=== PATIENT | male | born 1945 | race Caucasian/White ===

== ENCOUNTER 2019-10-27 10:00 | Outpatient (CLI) | payer MEDICARE, SELFPAY ==
--- NOTE | ~2019-10-27 | CT_ITS ---
EXAMINATION: CT lung screening DATE: 10/27/2019 10:18 INDICATION: Personal history of nicotine dependence, current smoker with 60 pack year history TECHNIQUE: Computed tomography (CT) of the chest was performed without intravenous contrast. The dose -length product (DLP) was 98.41 mGy-cm. Automated exposure control and iterative reconstruction techn ique were employed. COMPARISON: None FINDINGS: There is mild emphysema. A 2 mm nodule is present in the left upper lobe on image 24. The l ungs are free of acute opacities. There is no pleural effusion or pneumothorax. There is mild bilater al gynecomastia. No pathologically enlarged thoracic lymph nodes are identified. The heart size is no rmal. Calcified coronary artery atherosclerosis is noted. There is mild thoracic spondylosis. IMPRESSION: 1. Lung-RADS category 2: Benign appearance or behavior. Continue annual screening with noncontrast lo w-dose chest CT in 12 months. Reviewed, dictated and finalized at location A. IMPRESSION: 1. Lung-RADS category 2: Benign appearance or behavior. Continue annual screeni ng with noncontrast low-dose chest CT in 12 months.
== END 2019-10-27 10:01 | disposition home or self-care (01) ==
LOC: ANHIMG 10:03
PROVIDERS: PCP Physician Assistant; Visit Provider Physician Assistant
DX: Z12.2 Encounter for screening for malignant neoplasm of respiratory organs (principal); Z87.891 Personal history of nicotine dependence
CPT/HCPCS: G0297

== ENCOUNTER 2020-10-28 06:37 | Outpatient (CLI) | payer MEDICARE, SELFPAY ==
[2020-10-28 07:17] LABS: Hematocrit 42.3 % (42.0-52.0); Hemoglobin 14.2 g/dL (14.0-18.0); Mean Corpuscular HGB Conc 33.6 g/dl (32-36); Mean Corpuscular Hemoglobin 30.5 pg (26-34); Platelet Count Result 190 k/mm3 (150-375); Red Blood Count 4.65 M/mm3 (4.6-6.20); Red Cell Distribution Width 13.6 % (11.5-14.5); White Blood Count 5.7 K/mm3 (4.5-10.0)
[2020-10-28 07:28] LABS: Alanine Aminotransferase 21 U/L (4-50); Albumin Level 3.8 g/dL (3.5-5.1); Alkaline Phosphatase 88 U/L (38-126); Anion Gap 3 mmol/L (8-16); Aspartate Amino Transferase 35 U/L (17-59); Blood Urea Nitrogen 12 mg/dL (9-20); Calcium 9.4 mg/dL (8.4-10.2); Carbon Dioxide 29 mmol/L (22-30); Chloride 103 mmol/L (98-107); Cholesterol 116 mg/dL (0-200); Estimated Glomerular Filt Rate > 60; Glucose 97 mg/dL (65-110); HDL Direct 51 mg/dL; Potassium 4.5 mmol/L (3.4-5.0); Sodium 135 mmol/L (137-145); Triglycerides 37 mg/dL (<150)
[2020-10-28 07:40] LABS: LDL Cholesterol Direct 55 mg/dL
[2020-10-28 08:00] LABS: Prostate Specific Antigen 0.5 ng/mL (< OR = 4.0)
[2020-10-28 08:36] LABS: Folic Acid > 20.0 ng/mL (2.76->20)
== END 2020-10-28 06:38 | disposition home or self-care (01) ==
LOC: ANHLAB 06:39
PROVIDERS: PCP Internal Medicine; Visit Provider Physician Assistant
DX: R53.83 Other fatigue (principal); I25.10 Atherosclerotic heart disease of native coronary artery without angina pectoris; Z12.5 Encounter for screening for malignant neoplasm of prostate
CPT/HCPCS: 36415; 80053; 80061; 82607; 82746; 84153; 84443; 85027; G0103

== ENCOUNTER 2020-12-08 02:40 | Day surgery (SDC) | payer MEDICARE, SELFPAY ==
[2020-11-25 13:32] VITALS: BMI 23.6
--- NOTE | 2020-12-07 19:17 | PM.HPGS ---
History of Present Illness History of Present Illness Consent: Risks, benefits, and alternatives have been discussed and questions answered. Patient agrees to proceed with procedure. Chief complaint: neoplasm screening Narrative: Cameron Klein is a 74 year old male referred for colon cancer screening. He has a history of polyps Review of Systems Review of Systems: All systems reviewed & are unremarkable except as noted in HPI and below PMFSH Past Medical History Medical History CAD (coronary artery disease) Depression History of heart attack 2007 Skin cancer Stroke Surgical History Surgical History History of back surgery History of carpal tunnel surgery History of coronary artery stent placement x2 History of tonsillectomy Family History Family History Father Heart disease Cerebrovascular accident Mother Alive and well Social History Social History Years smoked: 58 Smoking status: Current every day smoker Tobacco type: cigarettes Second hand tobacco smoke exposure: No Alcohol intake: former Substance use: never Living arrangements: with family Gender identity (if verbalized by the patient): Male Sexual Orientation (if Verbalized by the Patient): Straight or Heterosexual Spiritual care concerns: No Meds Home Medications and Allergies Home Medications Medication Instructions Recorded Confirmed Type aspirin 81 mg tablet,delayed 81 mg PO DAILY 10/21/19 12/08/20 History release atorvastatin 40 mg tablet 40 mg PO DAILY 10/21/19 12/08/20 History isosorbide mononitrate 30 mg 30 mg PO DAILY 10/21/19 12/08/20 History tablet,extended release 24 hr lisinopril 10 mg tablet 10 mg PO DAILY 10/21/19 12/08/20 History Allergies Allergy/AdvReac Type Severity Reaction Status Date / Time No Known Allergies Allergy Mild Verified 12/08/20 09:40 Exam Resp: Auscultation: clear to auscultation bilaterally Cardio: Rate: regular rate Rhythm: regular rhythm GI: GI Palp: Yes Soft to palpation and No Tenderness to palpation present (GI) Assessment and Plan Assessment and plan (1) Colon cancer screening: Code(s): Z12.11 - Encounter for screening for malignant neoplasm of colon Status: Acute Assessment and Plan: Colonoscopy with possible biopsy or polypectomy or cautery or injection of substances.
--- NOTE | 2020-12-08 08:01 | P.PNAN_ITS ---
Anes - Initial Pre Proc Eval Procedure: Operation Date: 12/08/20 11:00 Proposed Procedures p Screening Colonoscopy - Kit Mayer MD Date/Time: 12/08/20 08:01 Surgeon: Kit Mayer MD Pre Op Diagnosis: neoplasm screening Patient Data Age: 74 Gender: M Height: 1.8 m Weight: 77 kg Allergies Allergy/AdvReac Type Severity Reaction Status Date / Time No Known Allergies Allergy Mild Verified 12/08/20 09:40 Home Medications Medication Instructions Recorded Confirmed Type aspirin 81 mg tablet,delayed 81 mg PO DAILY 10/21/19 12/08/20 History release atorvastatin 40 mg tablet 40 mg PO DAILY 10/21/19 12/08/20 History isosorbide mononitrate 30 mg 30 mg PO DAILY 10/21/19 12/08/20 History tablet,extended release 24 hr lisinopril 10 mg tablet 10 mg PO DAILY 10/21/19 12/08/20 History Patient hx anesthesia problems: none Family hx anesthesia problems: none [facility] Past Medical History Medical History (Updated 12/08/20 @ 08:02 by Vic Colindres DO) CAD (coronary artery disease) Depression History of heart attack 2007 Skin cancer Stroke Surgical History Surgical History (Updated 12/08/20 @ 08:02 by Vic Colindres DO) History of back surgery History of carpal tunnel surgery History of coronary artery stent placement x2 History of tonsillectomy Family History Family History Father Heart disease Cerebrovascular accident Mother Alive and well Social History Social History Years smoked: 58 Smoking status: Current every day smoker Tobacco type: cigarettes Second hand tobacco smoke exposure: No Alcohol intake: former Substance use: never Living arrangements: with family Gender identity (if verbalized by the patient): Male Sexual Orientation (if Verbalized by the Patient): Straight or Heterosexual Spiritual care concerns: No Anes - Eval Final PreProcedure Day of Procedure 12/08/20 08:01 Patient weight: normal Heart: regular rate and rhythm Lungs: clear to auscultation and normal air movement Airway: Mallampati scale class II Neurological: alert and oriented Last oral intake: >/= 8 hours ASA classification: III Emergent: no Anesthetic plan: proceed Anesthesia type and monitoring: general GIVS and standard monitoring Informed Consent: The patient's anesthetic plan and its attendant risks and benefits were discussed with the patient/family/POA. Questions were solicited and answers provided to the satisfaction of the patient/family/POA.
[2020-12-08 09:42] VITALS: BP 119/70; PULSE 65; RESP 18; TEMP 36.2; O2SAT 100
[2020-12-08] MEDS: LACTATED RINGERS 1,000 ML 150 ML IV CONT (09:47)
[2020-12-08 10:36] VITALS: BP 107/61; PULSE 53; RESP 20; O2SAT 100
[2020-12-08 10:46] VITALS: BP 108/60; PULSE 51; RESP 17; O2SAT 100
[2020-12-08 10:56] VITALS: BP 115/68; PULSE 56; RESP 18; O2SAT 100
== END 2020-12-08 11:16 | disposition home or self-care (01) ==
PROVIDERS: PCP Internal Medicine; Visit Provider Internal Medicine Gastroenterology
PROC: 0DJD8ZZ Inspection of Lower Intestinal Tract, Via Natural or Artificial Opening Endoscopic (ICD-10-PCS; CPT 45378; principal; 2020-12-08 11:00)
DX: Z12.11 Encounter for screening for malignant neoplasm of colon (principal); K57.30 Diverticulosis of large intestine without perforation or abscess without bleeding; Z86.010 Personal history of colon polyps; I25.10 Atherosclerotic heart disease of native coronary artery without angina pectoris; I25.2 Old myocardial infarction; F32.9 Major depressive disorder, single episode, unspecified; Z79.82 Long term (current) use of aspirin; Z95.5 Presence of coronary angioplasty implant and graft; F17.210 Nicotine dependence, cigarettes, uncomplicated
CPT/HCPCS: G0105; J2704; J7120

== ENCOUNTER 2021-11-01 07:19 | Outpatient (CLI) | payer MEDICARE, SELFPAY ==
[2021-11-01 07:47] LABS: Basophils Absolute Auto 0.1 K/mm3 (0.0-0.1); Basophils Percent Auto 1.4 % (0.2-1.2); Eosinophils Absolute Auto 0.1 K/mm3 (0-0.3); Eosinophils Percent Auto 1.6 % (0-4.4); Hematocrit 42.3 % (42.0-52.0); Hemoglobin 14.1 g/dL (14.0-18.0); Lymphocytes Absolute Auto 0.79 K/mm3 (0.9-3.2); Mean Corpuscular HGB Conc 33.3 g/dl (32-36); Mean Corpuscular Hemoglobin 30.7 pg (26-34); Mean Platelet Volume 10.5 fl (7.4-10.4); Monocytes Absolute Auto 0.6 K/mm3 (0.1-0.6); Monocytes Percent Auto 12.5 % (2.6-8.5); Neutrophils Absolute Auto 2.9 K/mm3 (1.3-6.7); Neutrophils Percent Auto 66.5 % (45.5-73.1); Platelet Count Result 176 k/mm3 (150-375); Red Cell Distribution Width 13.6 % (11.5-14.5); White Blood Count 4.4 K/mm3 (4.5-10.0)
[2021-11-01 07:54] LABS: Alanine Aminotransferase 20 U/L (6-50); Alkaline Phosphatase 88 U/L (38-126); Anion Gap 6 mmol/L (8-16); Aspartate Amino Transferase 37 U/L (17-59); Bilirubin,Total 1.2 mg/dL (0.2-1.3); Blood Urea Nitrogen 18 mg/dL (9-20); Calcium 8.8 mg/dL (8.4-10.2); Carbon Dioxide 29 mmol/L (22-30); Chloride 96 mmol/L (98-107); Cholesterol 119 mg/dL (0-200); Estimated Glomerular Filt Rate > 60; Glucose 98 mg/dL (65-110); HDL Direct 42 mg/dL; Potassium 4.5 mmol/L (3.4-5.0); Sodium 131 mmol/L (137-145); Triglycerides 32 mg/dL (<150)
[2021-11-01 08:06] LABS: LDL Cholesterol Direct 54 mg/dL
[2021-11-01 08:24] LABS: Prostate Specific Antigen 0.7 ng/mL (< OR = 4.0)
[2021-11-01 09:02] LABS: Folic Acid > 20.0 ng/mL (2.76->20)
== END 2021-11-01 07:20 | disposition home or self-care (01) ==
PROVIDERS: PCP Physician Assistant; Visit Provider Physician Assistant
DX: R53.83 Other fatigue (principal); I25.10 Atherosclerotic heart disease of native coronary artery without angina pectoris; Z12.5 Encounter for screening for malignant neoplasm of prostate
CPT/HCPCS: 36415; 80053; 80061; 82607; 82746; 84153; 84443; 85025; G0103

== ENCOUNTER 2021-11-04 09:49 | Outpatient (CLI) | payer MEDICARE, SELFPAY ==
--- NOTE | ~2021-11-04 | CT_ITS ---
EXAMINATION: CT lung screening DATE: 11/04/2021 10:02 INDICATION: Personal history of nicotine dependence TECHNIQUE: Computed tomography (CT) of the chest was performed without intravenous contrast. The dose -length product was 85.83 mGy-cm. Automated exposure control and iterative reconstruction technique w ere employed. COMPARISON: CT dated 10/27/2019 FINDINGS: There is moderate-severe emphysema. No thoracic lymphadenopathy. There is atherosclerosis. There is gynecomastia. No significant pleural or pericardial effusion. There is a stable 4 mm right u pper lobe nodule. There are smaller nodules in the upper lobes measuring 2 mm or less. No endobronchi al lesions. No new pulmonary nodules or masses. No focal airspace consolidation. Mild thoracic spondy losis. IMPRESSION: 1. Lung-RADS category 2: Benign appearance or behavior. Continue annual screening with noncontrast lo w-dose chest CT in 12 months. Reviewed, dictated and finalized at location A. IMPRESSION: 1. Lung-RADS category 2: Benign appearance or behavior. Continue annual screeni ng with noncontrast low-dose chest CT in 12 months.
== END 2021-11-04 09:50 | disposition home or self-care (01) ==
PROVIDERS: PCP Physician Assistant; Visit Provider Physician Assistant
DX: Z12.2 Encounter for screening for malignant neoplasm of respiratory organs (principal); Z87.891 Personal history of nicotine dependence
CPT/HCPCS: 71271

== ENCOUNTER 2021-12-02 07:31 | Outpatient (CLI) | payer MEDICARE, SELFPAY ==
[2021-12-02 08:32] LABS: Anion Gap 7 mmol/L (8-16); Blood Urea Nitrogen 16 mg/dL (9-20); Carbon Dioxide 27 mmol/L (22-30); Chloride 104 mmol/L (98-107); Estimated Glomerular Filt Rate > 60; Glucose 98 mg/dL (65-110); Potassium 4.3 mmol/L (3.4-5.0); Sodium 138 mmol/L (137-145)
== END 2021-12-02 07:32 | disposition home or self-care (01) ==
LOC: ANHLAB 07:33
PROVIDERS: PCP Physician Assistant; Visit Provider Physician Assistant
DX: E87.1 Hypo-osmolality and hyponatremia (principal)
CPT/HCPCS: 36415; 80048

== ENCOUNTER 2022-01-08 07:06 | Emergency (ER) | payer MEDICARE, SELFPAY ==
[2022-01-08 07:08] VITALS: BP 118/73; PULSE 59; RESP 16; TEMP 36.1; O2SAT 99
--- NOTE | 2022-01-08 07:29 | ED.GENADULT ---
HPI - General Adult General Chief complaint: Unspecified Stated complaint: Constipation, my rectum is out. Time Seen by Provider: 01/08/22 07:11 History of Present Illness HPI narrative: To the emergency department for evaluation of suspected rectal prolapse. Patient states he has been having intermittent constipation and diarrhea. Patient states during the week he is having issues with constipation and patient took multiple laxatives. Patient states he was then having a lot of diarrhea. Patient states that he has switched to hard formed stool again. Patient reports he spent approximately 10 minutes on the toilet this morning straining and pushing forcefully and will have a bowel movement. When patient was completed with his bowel movement he felt that part of himself was hanging out . Patient denies any nausea vomiting or abdominal pain. Patient denies any rectal pain. History of hemorrhoids, and coronary disease. Related Data Home Medications Medication Instructions Recorded Confirmed aspirin 81 mg tablet,delayed 81 mg PO DAILY 10/21/19 10/28/21 release (Adult Low Dose Aspirin) atorvastatin 40 mg tablet 40 mg PO DAILY 10/21/19 10/28/21 isosorbide mononitrate 30 mg 30 mg PO DAILY 10/21/19 10/28/21 tablet,extended release 24 hr lisinopril 10 mg tablet 10 mg PO DAILY 10/21/19 10/28/21 Allergies Allergy/AdvReac Type Severity Reaction Status Date / Time No Known Allergies Allergy Mild Verified 01/08/22 07:16 Review of Systems Review of Systems: CONSTITUTIONAL: Denies fever, chills, or sweats. EYES: Denies visual changes, redness, or discharge. ENT: Denies rhinorrhea, congestion, sore throat, or otalgia. CARDIOVASCULAR: Denies chest pain, palpitations, or edema. RESPIRATORY: Denies cough or dyspnea. GASTROINTESTINAL: See HPI GENITOURINARY: Denies dysuria or hematuria. SKIN: Denies rash or itching. MUSCULOSKELETAL: Denies back pain, joint pain, or myalgia. NEUROLOGIC: Denies headache, numbness, or weakness. [facility] Past Medical History Medical History CAD (coronary artery disease) Depression History of heart attack 2007 Skin cancer Stroke Surgical History Surgical History History of back surgery History of carpal tunnel surgery History of coronary artery stent placement x2 History of tonsillectomy Family History Family History Father Heart disease Cerebrovascular accident Mother Alive and well Social History Social History Years smoked: 58 Smoking status: Current every day smoker Tobacco type: cigarettes Second hand tobacco smoke exposure: No Alcohol intake: former Substance use: never Gender identity (if verbalized by the patient): Male Sexual Orientation (if Verbalized by the Patient): Straight or Heterosexual Spiritual care concerns: No Exam Narrative: APPEARANCE: Well appearing, no pain, no distress, well-nourished. HEAD: normocephalic, atraumatic. EYES: PERRLA/EOMI, conjunctivae clear. NOSE: Normal no drainage NECK: Supple. No adenopathy, no masses. RESPIRATORY: Airway patent, respirations nonlabored. Clear to auscultation bilaterally, no rales, rhonchi, wheezing. CARDIOVASCULAR: Regular rate and rhythm without murmurs rubs or gallops. ABDOMINAL: Soft, nontender, nondistended, normal bowel sounds. No rectal prolapse, no thrombosed hemorrhoids. No internal hemorrhoids palpated. No tenderness to palpation on ENRRIQUE.. MUSCULOSKELETAL: Moves all extremities. Strength/ROM intact, No edema, No calf tenderness. NEURO: Alert. Cranial nerves II through XII intact. Grossly intact SKIN: Warm, dry. Normal Color Course Course Emergency Course: Patient has no rectal prolapse. Normal exam. Patient was educated on increasing his fiber in
== END 2022-01-08 08:48 | disposition home or self-care (01) ==
LOC: ANHED 08:08
PROVIDERS: Emergency Provider Emergency Medicine; PCP Physician Assistant
DX: K59.00 Constipation, unspecified (principal); I25.10 Atherosclerotic heart disease of native coronary artery without angina pectoris; I25.2 Old myocardial infarction; Z86.73 Personal history of transient ischemic attack (TIA), and cerebral infarction without residual deficits; Z85.828 Personal history of other malignant neoplasm of skin; Z79.82 Long term (current) use of aspirin; Z95.5 Presence of coronary angioplasty implant and graft; F17.210 Nicotine dependence, cigarettes, uncomplicated
CPT/HCPCS: 99281

== ENCOUNTER 2022-06-26 15:34 | Outpatient (CLI) | payer MEDICARE, SELFPAY ==
--- NOTE | ~2022-06-26 | XR_ITS ---
EXAMINATION: XR knee LT 3V DATE: 06/26/2022 16:21 INDICATION: Left knee joint effusion. TECHNIQUE: 3 views of the left knee including standing views were obtained. COMPARISON: None. FINDINGS: Bone alignment is normal. No fracture. Joint spaces are well maintained. There is chondroca lcinosis of the menisci. There is no knee joint effusion. There is superficial infrapatellar bursitis . IMPRESSION: 1. No knee joint effusion. Reviewed, dictated and finalized at location A. IMPRESSION: 1. No knee joint effusion.
== END 2022-06-26 15:35 | disposition home or self-care (01) ==
LOC: ANHIMG 15:37
PROVIDERS: PCP Physician Assistant; Visit Provider Physician Assistant
DX: M25.462 Effusion, left knee (principal)
CPT/HCPCS: 73562

== ENCOUNTER 2022-08-10 07:59 | Outpatient (CLI) | payer MEDICARE, SELFPAY ==
--- NOTE | ~2022-08-10 | US_ITS ---
US art doppler w press LE BI INDICATION: Peripheral vascular disease TECHNIQUE: Segmental pressures and plethysmographic and Doppler waveforms of the brachial and lower e xtremity arteries were obtained. COMPARISON: None. FINDINGS: Right and left brachial artery pressures of 116 mm Hg and 118 mm Hg, respectively, are concordant (no rmal difference <= 30 mmHg). There is triphasic flow in the lower extremities bilaterally. The right ankle-brachial index (LALO) is 1.05 (normal >= 0.9-1.0). The right great toe-brachial index (TBI) is 1 (normal >= 0.60). The left LALO is 1.19. The left TBI is 0.91. IMPRESSION: 1. Normal bilateral ankle and toe brachial indices. Reviewed, dictated and finalized at location D.
== END 2022-08-10 08:00 | disposition home or self-care (01) ==
PROVIDERS: PCP Physician Assistant; Visit Provider Podiatrist Foot & Ankle Surgery
DX: I73.9 Peripheral vascular disease, unspecified (principal)
CPT/HCPCS: 93923

== ENCOUNTER 2022-11-09 06:46 | Outpatient (CLI) | payer MEDICARE, SELFPAY ==
[2022-11-09 07:56] LABS: Basophils Absolute Auto 0.1 K/mm3 (0.0-0.1); Basophils Percent Auto 1.4 % (0.2-1.2); Eosinophils Absolute Auto 0.1 K/mm3 (0-0.3); Eosinophils Percent Auto 1.7 % (0-4.4); Hematocrit 44.8 % (42.0-52.0); Hemoglobin 15.2 g/dL (14.0-18.0); Immature Granulocyte Absolute 0.01 K/mm3 (0.00-0.031); Immature Granulocyte Percent A 0.2 % (0-0.5); Lymphocytes Absolute Auto 0.95 K/mm3 (0.9-3.2); Lymphocytes Percent Auto 18.3 % (18.3-44.2); Mean Corpuscular HGB Conc 33.9 g/dl (32-36); Mean Corpuscular Hemoglobin 31.3 pg (26-34); Mean Corpuscular Volume 92.4 fl (80-100); Mean Platelet Volume 10.4 fl (7.4-10.4); Monocytes Absolute Auto 0.5 K/mm3 (0.1-0.6); Monocytes Percent Auto 9.3 % (2.6-8.5); Neutrophils Absolute Auto 3.6 K/mm3 (1.3-6.7); Neutrophils Percent Auto 69.1 % (45.5-73.1); Platelet Count Result 196 k/mm3 (150-375); Red Blood Count 4.85 M/mm3 (4.6-6.20); Red Cell Distribution Width 13.2 % (11.5-14.5); White Blood Count 5.2 K/mm3 (4.5-10.0)
[2022-11-09 12:08] LABS: Alanine Aminotransferase 26 U/L (6-50); Albumin Level 4.1 g/dL (3.5-5.1); Alkaline Phosphatase 103 U/L (38-126); Anion Gap 7 mmol/L (8-16); Aspartate Amino Transferase 45 U/L (17-59); Bilirubin,Total 0.9 mg/dL (0.2-1.3); Blood Urea Nitrogen 15 mg/dL (9-20); Calcium 8.9 mg/dL (8.4-10.2); Carbon Dioxide 27 mmol/L (22-30); Chloride 105 mmol/L (98-107); Cholesterol 120 mg/dL (0-200); Estimated Glomerular Filt Rate > 60; Glucose 99 mg/dL (65-110); HDL Direct 44 mg/dL; Sodium 139 mmol/L (137-145); Triglycerides 37 mg/dL (<150)
[2022-11-09 12:20] LABS: LDL Cholesterol Direct 62 mg/dL
[2022-11-09 12:45] LABS: Prostate Specific Antigen 0.6 ng/mL (< OR = 4.0)
[2022-11-09 13:24] LABS: Folic Acid > 20.0 ng/mL (2.76->20)
== END 2022-11-09 06:47 | disposition home or self-care (01) ==
PROVIDERS: PCP Physician Assistant; Visit Provider Physician Assistant
DX: I25.10 Atherosclerotic heart disease of native coronary artery without angina pectoris (principal); Z12.5 Encounter for screening for malignant neoplasm of prostate; R53.83 Other fatigue
CPT/HCPCS: 36415; 80053; 80061; 82607; 82746; 84153; 84443; 85025; G0103

== ENCOUNTER 2022-11-13 10:48 | Outpatient (CLI) | payer MEDICARE, SELFPAY ==
--- NOTE | ~2022-11-13 | CT_ITS ---
EXAMINATION: CT lung screening DATE: 11/13/2022 11:40 INDICATION: Personal history of nicotine dependence, current smoker with 60 pack year history TECHNIQUE: Computed tomography (CT) of the chest was performed without intravenous contrast. The dose -length product (DLP) was 96.52 mGy-cm. Automated exposure control and iterative reconstruction techn [employer] were employed. COMPARISON: 11/04/2021 FINDINGS: There is moderate emphysema. There is a stable 2 mm nodule in the left upper lobe. The lung s are free of acute opacities. No pleural effusion or pneumothorax. No pathologically enlarged thorac ic lymph nodes are identified. The heart size is normal. There is calcified coronary artery atheroscl erosis. Bilateral gynecomastia is noted. There is mild thoracic spondylosis. IMPRESSION: 1. Lung-RADS category 2: Benign appearance or behavior. Continue annual screening with noncontrast lo w-dose chest CT in 12 months. Reviewed, dictated and finalized at location A. IMPRESSION: 1. Lung-RADS category 2: Benign appearance or behavior. Continue annual screeni ng with noncontrast low-dose chest CT in 12 months.
== END 2022-11-13 10:49 | disposition home or self-care (01) ==
PROVIDERS: PCP Physician Assistant; Visit Provider Physician Assistant
DX: Z12.2 Encounter for screening for malignant neoplasm of respiratory organs (principal); F17.210 Nicotine dependence, cigarettes, uncomplicated
CPT/HCPCS: 71271

== ENCOUNTER 2022-12-21 18:37 | Emergency (ER) | payer MEDICARE, SELFPAY ==
--- NOTE | 2022-12-21 19:19 | PC.NURSE ---
patient states Icant wait around here all day and left from triage area
== END 2022-12-21 19:31 | disposition left against medical advice (07) ==
PROVIDERS: PCP Physician Assistant
DX: Z53.21 Procedure and treatment not carried out due to patient leaving prior to being seen by health care provider (principal)
CPT/HCPCS: 99199

== ENCOUNTER 2023-01-29 12:15 | Outpatient (CLI) | payer MEDICARE, SELFPAY ==
[2023-01-29 13:07] LABS: Appearance Urine Clear (Clear); Bilirubin Urine Negative (Negative); Blood Urine Negative (Negative); Color Urine Dark Yellow (Yellow); Glucose Urine UA Negative (Negative); Ketones Urine Negative (Negative); Leukocyte Esterase Ur Negative LEU/UL (NEGATIVE); Nitrate Urine Negative (Negative); Protein Urine Negative (Negative); Specific Grav Ur 1.021 (1.001-1.035)
[2023-01-29 13:15] LABS: Add Urine Microscopic? NO
== END 2023-01-29 12:16 | disposition home or self-care (01) ==
PROVIDERS: PCP Physician Assistant; Visit Provider Physician Assistant
DX: R32 Unspecified urinary incontinence (principal)
CPT/HCPCS: 81003; 87086

== ENCOUNTER 2023-04-03 14:48 | Outpatient (CLI) | payer MEDICARE, SELFPAY ==
[2023-04-03 15:15] LABS: Appearance Urine Clear (Clear); Bilirubin Urine Negative (Negative); Blood Urine Negative (Negative); Color Urine Yellow (Yellow); Glucose Urine UA Negative (Negative); Ketones Urine Negative (Negative); Leukocyte Esterase Ur Negative LEU/UL (NEGATIVE); Nitrate Urine Negative (Negative); Protein Urine Negative (Negative); Specific Grav Ur 1.002 (1.001-1.035); Urobilinogen Urine 0.2 mg/dL (<2.0); pH Urine 5.5 (5.0-9.0)
[2023-04-03 15:30] LABS: Add Urine Microscopic? NO
== END 2023-04-03 14:49 | disposition home or self-care (01) ==
PROVIDERS: PCP Physician Assistant; Visit Provider Physician Assistant
DX: R30.0 Dysuria (principal)
CPT/HCPCS: 81003; 87086

== ENCOUNTER 2023-05-11 07:13 | Outpatient (CLI) | payer MEDICARE, SELFPAY ==
--- NOTE | ~2023-05-11 | XR_ITS ---
Left Hand Technique: PA, oblique, and lateral views were obtained. Clinical History: Pain Findings: No acute fracture or dislocation is seen. Osseous alignment is anatomic. There is moderate osteoporosis arthritis of the first CMC joint. Soft tissues are unremarkable. Impression: Moderate first CMC joint osteoarthritis. Reviewed, dictated and finalized at location . GLE TRIMMER Impression: Moderate first CMC joint osteoarthritis.
== END 2023-05-11 07:14 | disposition home or self-care (01) ==
PROVIDERS: PCP Physician Assistant; Visit Provider Physician Assistant
DX: M19.042 Primary osteoarthritis, left hand (principal)
CPT/HCPCS: 73130

== ENCOUNTER 2023-11-14 15:04 | Outpatient (CLI) | payer MEDICARE, SELFPAY ==
[2023-11-14 15:43] LABS: Alanine Aminotransferase 24 U/L (6-50); Alkaline Phosphatase 96 U/L (38-126); Anion Gap 5 mmol/L (4-12); Aspartate Amino Transferase 48 U/L (17-59); Bilirubin,Total 1.4 mg/dL (0.2-1.3); Blood Urea Nitrogen 14 mg/dL (9-20); Carbon Dioxide 32 mmol/L (22-30); Chloride 101 mmol/L (98-107); Cholesterol 111 mg/dL (0-200); Estimated Glomerular Filt Rate > 60; Glucose 94 mg/dL (65-110); HDL Direct 49 mg/dL; Potassium 4.2 mmol/L (3.4-5.0); Sodium 138 mmol/L (137-145); Triglycerides 49 mg/dL (<150)
[2023-11-14 15:55] LABS: LDL Cholesterol Direct 50 mg/dL
== END 2023-11-14 15:05 | disposition home or self-care (01) ==
PROVIDERS: PCP Physician Assistant; Visit Provider Nurse Practitioner
DX: E78.5 Hyperlipidemia, unspecified (principal)
CPT/HCPCS: 36415; 80053; 80061

== ENCOUNTER 2023-11-15 11:09 | Outpatient (CLI) | payer MEDICARE, SELFPAY ==
[2023-11-27 07:33] LABS: Reference Lab Test Result 0.157
== END 2023-11-15 11:10 | disposition home or self-care (01) ==
PROVIDERS: PCP Physician Assistant; Visit Provider Nurse Practitioner
DX: R41.3 Other amnesia (principal)
CPT/HCPCS: 36415

== ENCOUNTER 2023-11-22 07:43 | Outpatient (CLI) | payer MEDICARE, SELFPAY ==
--- NOTE | ~2023-11-22 | CT_ITS ---
CT Scan of the Chest without Contrast: Clinical Indication: Lung cancer screening, nicotine dependence Technique: Contiguous sections were acquired throughout the chest without intravenous contrast. Dose reduction technique was used on this scan by utilizing automated exposure control and iterative recon struction technique. The dose-length product (DLP) was 91.83 mGy-cm. COMPARISON: 11/13/2022 Findings: There is no evidence of any significant mediastinal, hilar or axillary lymphadenopathy. Extensive cor onary artery calcifications are present. There is no evidence of pleural or pericardial effusion. The lungs are clear. No pulmonary nodules or infiltrates are noted. Moderate emphysema present. Images through the upper abdomen reveal no abnormalities. Impression: Lung RADS 1: Negative. 12 month follow-up screening CT advised. Moderate emphysema. Reviewed, dictated and finalized at [facility]. Impression: Lung RADS 1: Negative. 12 month follow-up screening CT advised. Moderate emphysema.
== END 2023-11-22 07:44 | disposition home or self-care (01) ==
LOC: ANHIMG 07:46
PROVIDERS: PCP Nurse Practitioner; Visit Provider Nurse Practitioner
DX: Z12.2 Encounter for screening for malignant neoplasm of respiratory organs (principal); J43.9 Emphysema, unspecified; Z87.891 Personal history of nicotine dependence
CPT/HCPCS: 71271

== ENCOUNTER 2023-12-16 13:13 | Outpatient (CLI) | payer MEDICARE, SELFPAY ==
--- NOTE | ~2023-12-16 | MR_ITS ---
EXAMINATION: MR brain/brain stem wo con DATE: 12/16/2023 14:11 INDICATION: Unspecified dementia, unspecified severity. TECHNIQUE: Magnetic resonance imaging (MRI) of the brain and brainstem was performed without intraven ous contrast. COMPARISON: None. FINDINGS: There is no intracranial hemorrhage, acute infarction, or abnormal intracranial mass lesion . There is an old infarct in posterior limb left internal capsule. There are scattered areas of nonsp ecific increased T2-weighted signal intensity in the cerebral white matter. The ventricles are normal in size. The orbits are normal. The paranasal sinuses are clear. The mastoid air cells are normal. IMPRESSION: 1. 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 2. Moderate nonspecific cerebral white matter disease, which likely represents chronic small vessel i schemic disease. Reviewed, dictated and finalized at location A. IMPRESSION: 1. 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 2. Moderate nonspecific cerebral white matter disease, which likely represents chronic small vessel ischemic disease.
== END 2023-12-16 13:14 | disposition home or self-care (01) ==
PROVIDERS: PCP Nurse Practitioner; Visit Provider Internal Medicine
DX: F03.90 Unspecified dementia, unspecified severity, without behavioral disturbance, psychotic disturbance, mood disturbance, and anxiety (principal); R90.82 White matter disease, unspecified; M62.28 Nontraumatic ischemic infarction of muscle, other site
CPT/HCPCS: 70551

== ENCOUNTER 2024-09-29 13:53 | Outpatient (CLI) | payer MEDICARE, SELFPAY ==
--- NOTE | ~2024-09-29 | XR_ITS ---
EXAM/ PROCEDURE: XR hip RT min 2V - 09/29/2024 14:10 CDT HISTORY: 78 years old Male with M25.559 - Pain in unspecified hip COMPARISON: None available TECHNIQUE: Three view(s) FINDINGS/ IMPRESSION: There are no fractures or dislocations.Joint space narrowing, subchondral sclerosis, subchondral cyst formation and osteophyte formation, compatible with moderate osteoarthritis. Reviewed, dictated and finalized at location A.
--- OUTSIDE RECORDS SUMMARY | 2024-09-29 13:59 | XMS_ITS | Clinical Summary ---
Author Organization [facility] [address] Address [address] [place] [address] Care Team Providers Care Sanitarian Inspector Name Role Phone Raul Rendon MD Primary Care Provider [phone] Allergies No known active allergies Medications multivitamin capsule Take one by mouth one time per day 0 0 8 Active aspirin 81 mg tablet take 1 tablet by oral route every day 0 0 4 Active nitroglycerin (NITROSTAT) 0.4 mg SL tabletIndications:Co ronary arteriosclerosis in [place] artery Place 1 tablet (0.4 mg total) under the tongue every 5 (five) minutes as needed for chest pain 25 tablet 3 3 Active atorvastatin (LIPITOR) 40 mg tabletIndications:Co ronary arteriosclerosis in [place] artery,Hypercholeste rolemia Take 1 tablet (40 mg total) by mouth daily 90 tablet 3 5 Active isosorbide mononitrate ER (IMDUR) 30 mg 24 hr tabletIndications:Co ronary artery disease of [place] artery of [place] heart with stable angina pectoris Take 1 tablet (30 mg total) by mouth daily 90 tablet 3 5 Active Active Problems Problem Noted Date Diagnosed Date Dizziness 03/09/2021 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 Leg cramps 03/06/2019 Family history of abdominal aortic aneurysm 02/23 Hypercholesterolemia 03/08/2016 Overview (07/06/2016): Hypercholesterolemia Tobacco dependence syndrome 04/01/2012 Overview (07/06/2016): TOBACCO USE DISORDER Old myocardial infarction 04/01/2012 Overview (07/06/2016): OLD MYOCARDIAL INFARCT Pure hypercholesterolemia 04/01/2012 Overview (07/06/2016): PURE HYPERCHOLESTEROLEM Coronary artery disease invo lving [place] coronary artery of [place] heart without angina pectoris 04/01/2012 Overview (07/06/2016): CRNRY ATHRSCL NATVE VSSL History of coronary artery stent placement 04/01 Overview (07/06/2016): STATUS-POST PTCA Surgical History Surgery Date Site/Laterality Comments OTHER SURGICAL HISTORY : Back surgery x 2 ANGIOPLASTY 03/26/2018 - 03/25/2019 SPINE SURGERY 2 times 1982 1990 SHUNT EXTERNALIZATION 2 stints 2006 Medical History Medical History Date Comments Hyperlipidemia Hyperlipidemia Arthritis Cancer (HCC) past skin cancers Heart disease angina 2019 Hypertension 2007 Neuromuscular disorder (HCC) nurophathy 2019 Family History Medical History Relation Name Comments Alcohol abuse Father nena staples Arthritis Father nena staples Heart attack Father nena staples Heart disease Father nena staples CABGs? Alcohol abuse Mother ramu staples Psoriasis Mother ramu staples Relation Name Status Comments Father nena staples Mother ramu staples Alive Social History Tobacco Use Types Packs/Day Years Used Date Smoking Tobacco: Every Day Cigarettes Smokeless Tobacco: Never Tobacco Cessation:Ready to Q uit: Not Asked; Counseling Given: Not Answered Alcohol Use Standard Drinks/Week Comments No 0 (1 standard drink = 0.6 oz pur e alcohol) Sex and Gender Information Value Date Recorded Sex Assigned at Not on file Legal Sex Male 12:24 AM [employer] Gender Identity Male 07/30/2019 9:34 AM CDT Sexual Orientation Straight 02/26/2019 9: 56 AM [employer] Obstetrics History Last Filed Vital Signs Vital Sign Reading Time Taken Comments Blood Pressure 104/62 06/05/2024 9:28 AM CDT Pulse 74 06/05/2024 9:28 AM CDT Temperature - - Respiratory Rate 12 03/11/2018 7:55 AM [employer] Oxygen Saturation 97% 06/05/2024 9:28 AM CDT Inhaled Oxygen Concentration - - Weight 77.7 kg (171 lb 3.2 oz) 06/05/2024 9:28 A M CDT Height 182.9 cm (6') 06/05/2024 9:28 AM CDT Body Mass Index 23.22 06/05/2024 9:28 AM CDT Plan of Treatment Health Maintenance Due Date Last Done Comments Depression Screening 1945 Fall Risk Assessment 1945 Hepatitis C Screening 1945 Hepatitis B Screening 1964 Zoster Vaccine (1 of 2) 1996 Abdominal Aortic Aneurysm (AAA) Screen 12/26/2011 Well Visit 65+ 12/26/2011 Influenza Vaccine (Season Ended) 2024 12/14/19 18, 12/14/2016 DTaP/Tdap/Td Vaccine (3 - Td or Tdap) 09/24/202703/2017, 07/28/2015 Pneumococcal vaccine 65+ Completed 03/14/2016, 08/[address] [facility] MEDIC[facility] Care Teams Sanitarian Inspector Relationship Specialty Start Date End Date Raul Rendon MD [address] [facility] [address] [facility] [address] [place] [id number] PCP - General Internal Medicine 03/15/20
--- OUTSIDE RECORDS SUMMARY | 2024-09-29 13:59 | XMS_ITS | Continuity of Care Document ---
Author Organization [facility] Address [address] [address] [place] [address] Phone Care Team Providers Care Loan Administrator Name Role Phone Jose Mclean DO Unavailable Unavailable Advance Directives Directive Yes / No Effective Date File Name No Information Encounters Encounter Description Practice Location Reason(s) For Visit Diagnoses Date Provider Providers Copied on Encounter [facility], [address], [place], [place], [id number], [place] tel:[phone] [facility] No Information Vinay Wood. [address] [place], [address], [place]. tel: [phone] Family History Family Member Type Diagnosis Age At Onset No Information Payers Payer name Insurance type Covered constitution party ID Authoriza tion(s) [id number] Social History Type Description Quantity Date Captured [...]
--- OUTSIDE RECORDS SUMMARY | 2024-09-29 13:59 | XMS_ITS | Referral Summary ---
Author Organization [facility] [address] Address [address] [place] [address] Care Team Providers Care Pipe Bowls Paint Trimmer Name Role Phone Raul Rendon MD Primary Care Provider [phone] Allergies No known active allergies Medications multivitamin capsule Take one by mouth one time per day 0 0 8 Active aspirin 81 mg tablet take 1 tablet by oral route every day 0 0 4 Active nitroglycerin (NITROSTAT) 0.4 mg SL tabletIndications:Co ronary arteriosclerosis in [place] artery Place 1 tablet (0.4 mg total) under the tongue every 5 (five) minutes as needed for chest pain 25 tablet 3 3 Active atorvastatin (LIPITOR) 40 mg tabletIndications:Co ronary arteriosclerosis in [place] artery,Hypercholeste rolemia Take 1 tablet (40 mg total) by mouth daily 90 tablet 3 5 Active isosorbide mononitrate ER (IMDUR) 30 mg 24 hr tabletIndications:Co ronary artery disease of [place] artery of [place] heart with stable angina pectoris Take 1 [...] PURE HYPERCHOLESTEROLEM Coronary artery disease invo [place]ving [place] coronary artery of [place] heart without angina pectoris 04/01/2012 Overview (07/06/2016): CRNRY ATHRSCL NATVE VSSL History of coronary artery stent placement 04/01 Overview (07/06/2016): STATUS-POST PTCA Social History Tobacco Use Types Packs/Day Years Used Date Smoking Tobacco: Every Day Cigarettes Smokeless Tobacco: Never Tobacco Cessation:Ready to Q uit: Not Asked; Counseling Given: Not Answered Alcohol Use Standard Drinks/Week Comments No 0 (1 standard drink = 0.6 oz pur e alcohol) Sex and Gender Information Value Date Recorded Sex Assigned at Not on file Legal Sex Male 12:24 AM [employer] Gender Identity Male 07/30/2019 9:34 AM CDT Sexual Orientation Straight 02/26/2019 9: 56 AM [employer] Last Filed Vital Signs Vital Sign Reading Time Taken Comments Blood Pressure 104/62 06/05/2024 9:28 AM CDT Pulse 74 06/05/2024 9:28 AM CDT Temperature - - Respiratory Rate 12 03/11/2018 7:55 AM [employer] Oxygen Saturation 97% 06/05/2024 9:28 AM CDT Inhaled Oxygen Concentration - - Weight 77.7 kg (171 lb 3.2 oz) 06/05/2024 9:28 A M CDT Height 182.9 cm (6') 06/05/2024 9:28 AM CDT Body Mass Index 23.22 06/05/2024 9:28 AM CDT Plan of Treatment Not on file Insurance [facility]IC[facility] MEDICARE MEDICARE [facility] Care Teams Pipe Bowls Paint Trimmer Relationship Specialty Start Date End Date Raul Rendon MD [address] [facility] [address] [place], [place] [id number] PCP - General Internal Medicine 03/15/20
== END 2024-09-29 13:54 | disposition home or self-care (01) ==
PROVIDERS: PCP Internal Medicine; Visit Provider Internal Medicine
DX: M25.551 Pain in right hip (principal)
CPT/HCPCS: 73502

== ENCOUNTER 2024-11-26 06:16 | Emergency (ER) | payer MEDICARE, SELFPAY ==
--- NOTE | ~2024-11-26 | CT_ITS ---
EXAMINATION: CT brain wo con DATE: 11/26/2024 06:45 INDICATION: Fall with head injury TECHNIQUE: Computed tomography (CT) of the head was performed without intravenous contrast. Sagittal and coronal reconstructions were performed. The mA was adjusted according to patient size. Iterative reconstruction technique was employed. The dose-length product was 681.00 mGy-cm. COMPARISON: Brain MR dated 12/16/2023 FINDINGS: No fracture. No acute intracranial hemorrhage, acute infarction or abnormal extra axial fluid collection. There is moderate scattered white matter hypoattenuation consistent with chronic small vessel ischemic disease. Ventricles are normal and symmetric. No mass/mass effect. The orbits, paranasal sinuses and mastoid air cells are normal. Intracranial calcified cerebral atherosclerosis is noted. IMPRESSION: 1. No fracture or acute intracranial process. 2. Moderate scattered white matter hypoattenuation consistent with chronic small vessel ischemic disease. Reviewed, dictated and finalized at location A. IMPRESSION: 1. No fracture or acute intracranial process. 2. Moderate scattered white matter hypoattenuation consistent with chronic smal l vessel ischemic disease.
--- NOTE | ~2024-11-26 | XR_ITS ---
EXAMINATION: XR scapula LT DATE: 11/26/2024 06:37 INDICATION: Left lower scapular pain TECHNIQUE: AP and lateral views of the left scapula were obtained. COMPARISON: None. FINDINGS: Bone alignment is normal. No fracture. Moderate acromioclavicular osteoarthritis. Soft tissues are unremarkable. Visualized portion of the lungs are clear. Visualized portion of the cardiomediastinal silhouette is normal. IMPRESSION: 1. Moderate left acromioclavicular osteoarthritis. No acute osseous abnormality. Reviewed, dictated and finalized at location A. IMPRESSION: 1. Moderate left acromioclavicular osteoarthritis. No acute osseous abnormality .
--- NOTE | ~2024-11-26 | CT_ITS ---
EXAMINATION: CT cervical spine wo con DATE: 11/26/2024 06:45 INDICATION: Neck pain post fall TECHNIQUE: Computed tomography (CT) of the cervical spine was performed without intravenous contrast. Automated exposure control and iterative reconstruction technique were employed. The dose-length product was 381.80 mGy-cm. COMPARISON: None FINDINGS: 10 degrees cervicothoracic levocurvature. Mild straightening of the normal lordosis in the mid to lower cervical spine. Vertebral body heights are normal. No acute fracture. Severe disc height loss with endplate osteophytes and severe uncovertebral osteoarthritis at C5-C6 and C6-C7. Moderate disc height loss with moderate right-sided uncovertebral osteoarthritis at C4-C5. Disc bulges contributing to mild central canal stenosis at each of these levels. Severe facet osteoarthritis on the left at C3-C4, the right at C4-C5 and bilaterally at C7-T1 through T5-T6. There is moderate disc height loss on the left at C3-C4, and the right at C4-C5 and C6-C7 and bilaterally at C5-C6. Mild neural from stenosis at a few additional cervical and upper thoracic neural foramina. Moderate emphysematous visualized apices of lungs. Small amount of atherosclerotic calcifications at the bilateral carotid bulbs. Cervical soft tissues are otherwise unremarkable. IMPRESSION: 1. Severe cervical spondylosis. Reviewed, dictated and finalized at location A.
[2024-11-26 06:23] VITALS: BP 130/80; PULSE 75; RESP 22; TEMP 36.9
--- NOTE | 2024-11-26 06:30 | ED.NECK ---
HPI - Neck Pain/Injury General Chief Complaint: Neck Pain/Injury <Asif Adan MD - Last Filed: 11/26/24 06:57> Stated Complaint: Neck pain after working in [employer] <Asif Adan MD - Last Filed: 11/26/24 06:57> Time Seen by Provider: 11/26/24 06:23 <Asif Adan MD - Last Filed: 11/26/24 06:57> History of Present Illness HPI Narrative: This is a 78-year-old male with history of CAD status post stents x2, hyperlipidemia who presents to the ED for neck pain. Patient states that a few days ago, he was pulling don in the [employer] and he felt pain in his left shoulder/neck. He also reports that he fell a couple times while in the [employer] and he is unsure if he hit his head. He denies any headache at this time. He is not on any blood thinners. Reports left shoulder/neck pain that is worse with movements. He had difficulty sleeping last night due to this. <Asif Adan MD - Last Filed: 11/26/24 06:57> Related Data Home Medications: Home Medications ?Medication ?Instructions ?Recorded ?Confirmed ?Last Taken ?Type aspirin 81 mg tablet,delayed 81 mg PO DAILY 10/21/19 01/21/24 Unknown History release (Adult Low Dose Aspirin) atorvastatin 40 mg tablet 40 mg PO DAILY 10/21/19 01/21/24 Unknown History isosorbide mononitrate 30 mg 30 mg PO DAILY 10/21/19 01/21/24 Unknown History tablet,extended release 24 hr multivitamin (Daily Multi-Vitamin 1 tablet PO DAILY 07/18/22 01/21/24 Unknown History tablet) <Asif Adan MD - Last Filed: 11/26/24 06:57> Allergies/Adverse Reactions: Allergies Allergy/AdvReac Type Severity Reaction Status Date / Time No Known Allergies Allergy Mild Verified 11/26/24 06:28 <Asif Adan MD - Last Filed: 11/26/24 06:57> Review of Systems Review of Systems: Gen.: Denies fevers or chills Eyes: Denies eye pain or visual change ENT: Denies congestion Respiratory: Denies shortness of breath or cough CV: Denies chest pain or palpitations GI: Denies abdominal pain nausea, emesis or diarrhea denies burning, urgency, frequency or hematuria Musculoskeletal: As per HPI Neuro: Denies numbness, tingling, weakness or focal weakness Skin: Denies rash Except as documented, all other systems reviewed and negative <Asif Adan MD - Last Filed: 11/26/24 06:57> [facility] Past Medical History Medical History: Medical History Dementia of Alzheimer's type with behavioral disturbance Depression due to dementia MCI (mild cognitive impairment) Depression History of heart attack 2006 CAD (coronary artery disease) Skin cancer Stroke <Asif Adan MD - Last Filed: 11/26/24 06:57> Surgical History Surgical History: Surgical History Status post surgical removal of malignant neoplasm of skin History of tonsillectomy History of coronary artery stent placement x2 History of carpal tunnel surgery History of back surgery <Asif Adan MD - Last Filed: 11/26/24 06:57> Family History Family History: Family History Father Heart disease Cerebrovascular accident Mother Alive and well <Asif Adan MD - Last Filed: 11/26/24 06:57> Social History Social History: Social History Years smoked: 58 Smoking status: Light tobacco smoker Tobacco type: cigarettes Second hand tobacco smoke exposure: No Alcohol intake: never Substance use: never Substance use type: does not use Lack of Transportation: No Lack of Food: Never True Current Housing: I Have Housing Concerned About Future Housing: No Difficulty Paying Gas/Electric Bills: No Difficulty Paying for Meds: No Currently Unemployed: No Education: Associate Degree Difficulty w/ Childcare or Family Care: No Living arrangements: with family Gender identity (if verbalized by the patient): Male Sexual Orientation (if Verbalized by the Patient): Straight or Heterosexual Spiritual care concerns: No <Asif Adan MD - Last Filed: 11/26/24 06:57> Exam Narrative: APPEARANCE: No acute distress, nontoxic, resting in bed EYES: EOMI HEENT: Normocephalic, atraumatic, OMM RESPIRATORY: No respiratory distress Clear to auscultation bilaterally with no rhonchi wheezing or rales. CARDIOVASCULAR: Regular rate and rhythm without murmurs rubs or gallops. ABDOMINAL: Soft, nontender, nondistended, no rebound or guarding MUSCULOSKELETAl: Moves all extremities. Tenderness to palpation over the inferior border of the left scapula without crepitus. Tenderness over the left trapezius muscle. No midline cervical/thoracic tenderness palpation, step-offs, deformities. NEURO: Awake and alert. Following commands, speech normal, no focal deficits SKIN:: Warm, dry. No rashes lesions or abrasions PSYCHIATRIC: Normal affect/mood, <Asif Adan MD - Last Filed: 11/26/24 06:57> Course Vital Signs Vital signs: Vital Signs Temperature 36.9 C 11/26/24 06:23 Pulse Rate 75 11/26/24 06:23 Respiratory Rate 22 H 11/26/24 06:23 Blood Pressure 130/80 11/26/24 06:23 Oxygen Delivery Room Air 11/26/24 06:23 Temperature 36.6 C 11/26/24 07:16 Pulse Rate 62 11/26/24 07:16 Respiratory Rate 20 11/26/24 07:16 Blood Pressure 104/73 11/26/24 07:16 Pulse Oximetry 97 11/26/24 07:16 Oxygen Delivery Room Air 11/26/24 06:23 <Asif Adan MD - Last Filed: 11/26/24 06:57> Vital Signs Temperature 36.9 C 11/26/24 06:23 Pulse Rate 75 11/26/24 06:23 Respiratory Rate 22 H 11/26/24 06:23 Blood Pressure 130/80 11/26/24 06:23 Oxygen Delivery Room Air 11/26/24 06:23 Temperature 36.6 C 11/26/24 07:16 Pulse Rate 62 11/26/24 07:16 Respiratory Rate 20 11/26/24 07:16 Blood Pressure 104/73 11/26/24 07:16 Pulse Oximetry 97 11/26/24 07:16 Oxygen Delivery Room Air 11/26/24 06:23 <Serg Dominique MD - Last Filed: 11/26/24 08:08> MDM - Neck Pain/Injury MDM Narrative Medical decision making narrative: 78-year-old male who presents to the ED for neck/shoulder pain after working in the [employer]. He had a fall with possible a straight ahead but he is unsure. And tenderness over the inferior border of the left scapula and tenderness over the left trapezius muscle. CT head and C-spine will be obtained in addition to x-ray left scapula. Patient will be signed out pending imaging. <Asif Adan MD - Last Filed: 11/26/24 06:57> 78-year-old male who presents to the ED for neck/shoulder pain after working in the [employer]. He had a fall with possible a straight ahead but he is unsure. And tenderness over the inferior border of the left scapula and tenderness over the left trapezius muscle. CT head and C-spine will be obtained in addition to x-ray left scapula. Patient will be signed out pending imaging. Patient was signed out pending results of CTs and x-rays CT head showed no acute abnormality CT C-spine showed evidence of spondylosis Scapula showed moderate left acromioclavicular osteoarthritis <Serg Dominique MD - Last Filed: 11/26/24 08:08> Differential Diagnosis Differential diagnosis: Likely other (Fracture, strain, sprain, CVA) <Asif Adan MD - Last Filed: 11/26/24 06:57> Medical Records Attestation: I reviewed the patient's medical records. <Asif Adan MD - Last Filed: 11/26/24 06:57> Discharge Plan Discharge Clinical Impression: Left shoulder strain, Cervical strain, acute <Asif Adan MD - Last Filed: 11/26/24 06:57> Patient Disposition: Home <Asif Adan MD - Last Filed: 11/26/24 06:57> Condition: Stable <Asif Adan MD - Last Filed: 11/26/24 06:57> Instructions: Antibiotic Form, Shoulder Sprain (ED), Cervical Sprain (ED), Neck Pain (ED) <Asif Adan MD - Last Filed: 11/26/24 06:57> Patient Language: Greenlandic <Asif Adan MD - Last Filed: 11/26/24 06:57> Prescriptions: New lidocaine [Lidoderm] 5 % adhesive patch,medicated 1 patch topical DAILY Qty: 15 0RF Rx Instructions: leave on most painful area for up to 12 hrs orphenadrine citrate 100 mg tablet extended release 100 mg PO Q12H PRN (Reason: muscle pain) Qty: 30 0RF diclofenac potassium 50 mg tablet 50 mg PO TID PRN (Reason: pain) Qty: 21 0RF No Action aspirin [Adult Low Dose Aspirin] 81 mg tablet,delayed release (DR/EC) 81 mg PO DAILY isosorbide mononitrate 30 mg tablet extended release 24 hr 30 mg PO DAILY atorvastatin 40 mg tablet 40 mg PO DAILY memantine [Namenda Titration Rakesh] 5-10 mg tablets,dose pack See Rx Instructions PO PER PKG DIR Qty: 49 0RF Rx Instructions: PO PER PKG DIR, after 28 days 10 mg twice a day galantamine 8 mg capsule,ext rel. pellets 24 hr 8 mg PO QAM Qty: 30 6RF Rx Instructions: administer with breakfast memantine 10 mg tablet 10 mg PO BID Qty: 180 1RF escitalopram oxalate 10 mg tablet 10 mg PO DAILY Qty: 90 1RF multivitamin [Daily Multi-Vitamin] Tablet 1 tablet PO DAILY <Asif Adan MD - Last Filed: 11/26/24 06:57> Follow-up/Referrals: Ayush Virgen, [Primary Care Provider, Internal Medicine] <Asif Adan MD - Last Filed: 11/26/24 06:57> Time of Disposition: 08:08 <Asif Adan MD - Last Filed: 11/26/24 06:57> 08:08 <Serg Dominique MD - Last Filed: 11/26/24 08:08>
[2024-11-26] MEDS: KETOROLAC 30 MG/ML VIAL (*BKC) IM (06:49)
[2024-11-26] MEDS: LIDOCAINE 5% PATCH 1 PATCH TRANSDERM (06:50)
[2024-11-26 07:16] VITALS: BP 104/73; PULSE 62; RESP 20; TEMP 36.6; O2SAT 97
== END 2024-11-26 08:17 | disposition home or self-care (01) ==
PROVIDERS: Emergency Provider Student in an Organized Health Care Education/Training Program; PCP Internal Medicine
DX: S16.1XXA Strain of muscle, fascia and tendon at neck level, initial encounter (principal); S46.912A Strain of unspecified muscle, fascia and tendon at shoulder and upper arm level, left arm, initial encounter; I25.10 Atherosclerotic heart disease of native coronary artery without angina pectoris; E78.5 Hyperlipidemia, unspecified; G30.9 Alzheimer's disease, unspecified; F02.83 Dementia in other diseases classified elsewhere, unspecified severity, with mood disturbance; F02.818 Dementia in other diseases classified elsewhere, unspecified severity, with other behavioral disturbance; I25.2 Old myocardial infarction; F17.210 Nicotine dependence, cigarettes, uncomplicated; Z95.5 Presence of coronary angioplasty implant and graft; Z86.73 Personal history of transient ischemic attack (TIA), and cerebral infarction without residual deficits; Z85.828 Personal history of other malignant neoplasm of skin; M19.012 Primary osteoarthritis, left shoulder; X50.0XXA Overexertion from strenuous movement or load, initial encounter
CPT/HCPCS: 70450; 72125; 73010; 96372; 99284; A9270; J1885

== ENCOUNTER 2025-01-30 11:59 | Outpatient (CLI) | payer MEDICARE, SELFPAY ==
--- OUTSIDE RECORDS SUMMARY | 2003-11-12 02:15 | XMS_ITS | Continuity of Care Document ---
Author Organization [facility] Address [address] [place] [address] Phone Care Team Providers Care Elevator Tender Name Role Phone Jose Mclean DO Unavailable Unavailable Advance Directives Directive Yes / No Effective Date File Name No Information Encounters Encounter Description Practice Location Reason(s) For Visit Diagnoses Date Provider Providers Copied on Encounter [facility], [address], [place], [place], [id number], [place] tel:[phone] [facility] No Information Vinay Wood. [address] [place], [address], [place]. tel: [phone] Family History Family Member Type Diagnosis Age At Onset No Information Payers Payer name Insurance type Covered constitution party ID Authoriza tion(s) BC[id number] Social History Type Description Quantity Date Captured Comments Sex Male Smoking Status No Information Chief Complaint And Reason For Visit No Information Reason For Referral Reason For Referral No Information History Of Present Illness Encounter Date Complaint History Of Prese nt Illness No Information Functional Status Date Functional Assessmen t No Information Instructions Date Instruction Additional Infor mation No Information Assessments Type Assessment Date No Information Patient Care Teams Name Effective Dates (start - stop) Status Members No Information
--- OUTSIDE RECORDS SUMMARY | 2025-01-30 12:24 | XMS_ITS | Clinical Summary ---
Author Organization [facility] [address] Address [address] [place] [address] Care Team Providers Care Corporate Development Manager Name Role Phone Ayush Virgen DO Primary Care Provider [phone] Allergies No known active allergies Medications multivitamin capsule Take one by mouth one time per day 0 0 8 Active aspirin 81 mg tablet take 1 tablet by oral route every day 0 0 4 Active nitroglycerin (NITROSTAT) 0.4 mg SL tabletIndications:Co ronary arteriosclerosis in [place] artery Place 1 tablet (0.4 mg total) under the tongue every 5 (five) minutes as needed for chest pain 25 tablet 3 3 Active atorvastatin (LIPITOR) 40 mg tabletIndications:Co ronary arteriosclerosis in [place] artery,Hypercholeste rolemia Take 1 tablet (40 mg total) by mouth daily 90 tablet 3 5 Active isosorbide mononitrate ER (IMDUR) 30 mg 24 hr tabletIndications:Co ronary artery disease of [place] artery of [place] heart with stable angina pectoris Take 1 [...] PURE HYPERCHOLESTEROLEM Coronary artery disease invo lving [place] coronary artery of [place] heart without angina pectoris 04/01/2012 Overview (07/06/2016): [...] disease angina 2019 Hypertension 2007 Neuromuscular disorder nurophathy 2019 Family History Medical History Relation Name Comments Alcohol abuse Father nena staples Arthritis Father nena staples Heart attack Father nena staples Heart disease Father nena staples CABGs? Alcohol abuse Mother armu staples Psoriasis Mother ramu staples Relation Name [...] on file Legal Sex Male 12:24 AM [employer] Gender Identity Male 07/30/2019 9:34 AM CDT Sexual Orientation Straight 02/26/2019 9: 56 AM [employer] Last Filed Vital Signs Vital Sign Reading Time Taken Comments Blood Pressure 104/62 06/05/2024 9:28 AM CDT Pulse 74 06/05/2024 9:28 AM CDT Temperature - - Respiratory Rate 12 03/11/2018 7:55 AM [employer] Oxygen Saturation 97% 06/05/2024 9:28 AM CDT [...] C Screening 1945 Hepatitis B Screening 1963 Abdominal Aortic Aneurysm (AAA) Screen 12/26/2011 Well Visit 65+ 12/26/2011 Influenza Vaccine (#1) 2024 12/13/2017, 2016 DTaP/Tdap/Td Vaccine (3 - Td or Tdap) 09/24/202703/2017, 07/28/2015 Pneumococcal vaccine 65+ Completed 03/14/2016, 08/24 Zoster Vaccine Completed 12/19/2020, 10/17/2020 Insurance MEDICARE [facility] Address: [address] [address] [place] [address] [facility] MEDICARE MEDICARE [facility] Care Teams Corporate Development Manager Relationship Specialty Start Date End Date Ayush Virgen DO PCP - General Internal Medicine 11/20/24
[2025-02-06 10:03] LABS: Beta-amyloid 42 20.4
== END 2025-01-30 12:00 | disposition home or self-care (01) ==
LOC: ANHLAB 12:03
PROVIDERS: PCP Internal Medicine; Visit Provider Internal Medicine
DX: G30.9 Alzheimer's disease, unspecified (principal); F02.818 Dementia in other diseases classified elsewhere, unspecified severity, with other behavioral disturbance
CPT/HCPCS: 83520